=== PATIENT | female | born 1995 | race Two or more races ===

== ENCOUNTER 2024-08-11 17:06 | Emergency (ER) | payer OTHER, BC ==
[2024-08-11 17:25] VITALS: RESP 18; TEMP 97.7
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
[2024-08-11] MEDS: ACETAMINOPHEN TAB 325 MG TAB PO STA (18:31)
[2024-08-11 18:50] VITALS: BP 132/78; PULSE 80
== END 2024-08-11 18:50 | disposition home or self-care (01) ==
LOC: EC 17:06
DX: Z04.1 Encounter for examination and observation following transport accident (principal); W00.0XXA Fall on same level due to ice and snow, initial encounter
CPT/HCPCS: 99284